=== PATIENT | male | born 2000 | race Caucasian/White ===

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

== ENCOUNTER → 2019-03-13 | Outpatient (CLI) | payer BC, OTHER ==
[~2019-03-13] MED LIST changes: +ISOVUE-370 76% 100ML VIAL (Q9967) As Ordered ONE
--- NOTE | 2019-03-13 14:11 | REP ---
CT ANGIOGRAPHY AND CT SCANNING OF THE NECK WITH IV CONTRAST: HISTORY: Throbbing headache. Neck pain. CT CONTRAST DOSE: 100 mL of intravenous Isovue-370. CT FINDINGS: Great vessel origins are unremarkable. The vertebral arteries are patent from their origins and symmetric in size. There is no evidence to suggest stenosis, dissection, or anatomic variant in the posterior circulation in the neck. The common carotid arteries are unremarkable bilaterally. Carotid bifurcations are clear. There is no evidence to suggest internal carotid artery dissection or arteritis. No venous abnormality is observed. Thyroid lobes are normal and homogeneous. Submandibular and parotid glands are normal and symmetric. There is no evidence of cervical adenopathy, mass, or cyst. The lung apices are clear. No bony destructive lesion is seen. There are mucous retention cysts in the inferior aspect of each maxillary sinus, 20 mm in greatest diameter in the right maxillary sinus and 13 mm in greatest diameter in the left. IMPRESSION: Normal CT angiography of the neck and CT neck soft tissue findings. Electronically Signed by Harley Saavedra MD 03/13/2019 02:17 P
--- NOTE | 2019-03-13 14:14 | REP ---
CT ANGIOGRAPHY OF THE BRAIN AND CT BRAIN WITH IV CONTRAST: HISTORY: Throbbing headache and neck pain. Pain on exertion. CT CONTRAST DOSE: 100 mL of intravenous Isovue-[address] FINDINGS: Mucous retention cysts are visible in the inferior aspect of each maxillary sinus, right larger than left. There is a small mucous retention cyst in one of the posterior ethmoid air cells on the left. Visualized paranasal sinuses are otherwise clear. No intraorbital abnormality is seen. The temporal arteries and scalp vessels are unremarkable. The distal vertebral arteries are patent and symmetric. Basilar artery is patent. Posterior cerebral and superior cerebellar arteries are unremarkable. The distal internal carotid arteries have a normal appearance. There is no evidence of montalvo aneurysm or arteriovenous malformation. Anterior middle cerebral arteries are unremarkable. The sagittal sinus is well opacified and is homogeneous. The straight sinus is unremarkable. The right sigmoid sinus is quite small compared to the left, which is unremarkable. In the neck, the right internal jugular vein is smaller than the left. There is no evidence to suggest acute thrombosis, however. CT brain images show normal lateral and third and fourth ventricles. Kendrick-white differentiation pattern is normal above and below the tentorium. There is no evidence of intracranial mass lesion. No extra-axial fluid collection or bleed is seen. 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 Otherwise negative CT angiography of the brain and CT scanning of the brain postcontrast. Electronically Signed by Harley Saavedra MD 03/13/2019 02:17 P
== END ==
LOC: M RAD 12:55
PROVIDERS: ATTEND Specialist
DX: R51 Headache (principal); M54.2 Cervicalgia

== ENCOUNTER → 2020-07-31 | Outpatient (REF) | payer BC, OTHER ==
[~2020-07-31] MED LIST changes: -ISOVUE-370 76% 100ML VIAL (Q9967) As Ordered ONE
== END ==
LOC: M LAB REF 18:10
PROVIDERS: ATTEND Physician Assistant Medical
DX: Z01.84 Encounter for antibody response examination (principal)